=== PATIENT | male | born 1945 | race Caucasian/White ===

== ENCOUNTER 2017-10-06 09:27 | Day surgery (SDC) | payer OTHER ==
[~2017-10-06 09:27] MED LIST: ALPRAZOLAM2 MG PO; HUMALOG MI100 UNIT/2; LEVO-T25 MCG PO; LOSARTAN-HCTZ1 EAC1 PO; NORVASC5 MG PO; SIMVASTATIN20 MG PO
[2017-10-06] MEDS ORDERED: CIPRO500 MG PO (13:53)
[2017-10-06] MEDS ORDERED: ULTRACET PO (13:54)
== END 2017-10-06 14:45 | disposition home or self-care (01) ==
LOC: CIR.AMB 09:27 → U 09:27 → CIR.AMB 14:45
DX: D17.21 Benign lipomatous neoplasm of skin and subcutaneous tissue of right arm (principal)